=== PATIENT | male | born 1995 | race African-American/Black ===

== ENCOUNTER 2017-05-02 20:13 | Emergency (ER) | payer BC ==
[2017-05-02] MEDS ORDERED: AZITHROMYCIN 500 MG TAB PO STA (21:20)
[2017-05-02] MEDS ORDERED: cefTRIAXone 250 MG VIAL IM STA (21:20)
--- NOTE | 2017-05-02 21:23 | ED ---
Male Urogenital HPI - General Chief complaint: Urogenital Stated complaint: Male Source: patient Mode of arrival: ambulatory Limitations: no limitations - History of Present Illness Initial comments: 21-year-old -[place] male sent for evaluation of urethral burning and dysuria. He states that he had unprotected sex with his ex-girlfriend 2 weeks ago and about a week ago he started having his symptoms. He denies any dermatological changes and states that he only has burning. He denies any urethral discharge or testicular/penile tenderness. He has never had urinary tract infections or sexually transmitted illnesses in the past. He states he knows that his ex-girlfriend has been "sleeping around ." - Related Data Allergies Allergy/AdvReac Type Severity Reaction Status Date / Time No Known Allergies Allergy Verified 05/02/17 20:29 Review of Systems ROS Statement: Those systems with pertinent positive or pertinent negative responses have been documented in the HPI. ROS Other: All systems not noted in ROS Statement are negative. Constitutional: Denies: fever, chills Eyes: Denies: eye pain, eye discharge ENT: Denies: ear pain, throat pain Respiratory: Denies: cough, dyspnea Cardiovascular: Denies: chest pain, palpitations Endocrine: Denies: fatigue, polydipsia Gastrointestinal: Denies: abdominal pain, nausea, vomiting Genitourinary: Reports: dysuria, other (Urethral burning). Denies: urgency, hematuria, discharge, testicular pain, testicular mass Musculoskeletal: Denies: back pain, arthralgia, myalgia Skin: Denies: rash, lesions Neurological: Denies: headache, weakness Psychiatric: Denies: anxiety, depression Hematological/Lymphatic: Denies: easy bleeding, easy bruising Past Medical History Past Medical History: No Reported History History of Any Multi-Drug Resistant Organisms: None Reported Past Surgical History: No Surgical Hx Reported Past Psychological History: Bipolar Smoking Status: Never smoker Past Alcohol Use History: Occasional Past Drug Use History: Marijuana General Exam Limitations: no limitations General appearance: alert, in no apparent distress Head exam: Present: atraumatic, normocephalic, normal inspection Eye exam: Present: normal appearance, PERRL, EOMI. Absent: scleral icterus, conjunctival injection, periorbital swelling ENT exam: Present: normal exam, mucous membranes moist Neck exam: Present: normal inspection. Absent: tenderness, meningismus, lymphadenopathy Respiratory exam: Present: normal lung sounds bilaterally. Absent: respiratory distress, wheezes, rales, rhonchi, stridor Cardiovascular Exam: Present: regular rate, normal rhythm, normal heart sounds. Absent: systolic murmur, diastolic murmur, rubs, gallop, clicks GI/Abdominal exam: Present: soft, normal bowel sounds. Absent: distended, tenderness, guarding, rebound, rigid Rectal exam: Present: deferred exam: Present: normal inspection, circumcision. Absent: testicular tenderness, urethral discharge, scrotal swelling, vertical testicular lie External exam: Present: normal external exam. Absent: erythema, swelling, lesions Extremities exam: Present: normal inspection, full ROM, normal capillary refill. Absent: tenderness, pedal edema, joint swelling, calf tenderness Back exam: Present: normal inspection Neurological exam: Present: alert, oriented X3, CN II-XII intact Psychiatric exam: Present: normal affect, normal mood Skin exam: Present: warm, dry, intact, normal color. Absent: rash Course Vital Signs 05/02/17 20:27 Temperature 98.3 F Pulse Rate 97 Respiratory 20 Rate Blood Pressure 143/77 O2 Sat by Pulse 97 Oximetry Medical Decision Making - Medical Decision Making 21-year-old Afro-[place] male presenting for evaluation of urethral burning and dysuria for the last week. Sexual intercourse unprotected with a new partner 2 weeks ago. He denies any urethral discharge. On physical examination there is no discharge at the urethral meatus and not expressed during exam. There are no dermatologic changes and exam is negative for any lesions to the penis or scrotum. They're further no enlarged lymph nodes. Urethral swabs obtained and sent for culture. Patient treated with IM Rocephin and by mouth azithromycin. He was given instructions on follow-up with his primary care physician and informed that he would be contacted with positive results but if cultures were negative he would not be contacted. All questions were answered and there were numerous. The patient acknowledged an understanding of all information provided and agreed with this plan of care. Disposition Clinical Impression: Urethritis, unspecified Disposition: HOME SELF-CARE Condition: Stable Instructions: Sexually Transmitted Diseases (ED) Referrals: None,Stated [Primary Care Provider] - 1-2 days Time of Disposition: 21:23
[2017-05-02 21:52] VITALS: BP 129/71; PULSE 79; RESP 18; TEMP 97.8
== END 2017-05-02 21:51 | disposition home or self-care (01) ==
LOC: EC 20:13
DX: N34.2 Other urethritis (principal)
CPT/HCPCS: 99283; 96372; 87591; 87491; J0696

== ENCOUNTER 2020-07-09 13:33 | Emergency (ER) | payer BC ==
[2020-07-09 13:39] VITALS: BP 129/87; PULSE 100; RESP 20; TEMP 98.9
[2020-07-09] MEDS ORDERED: AZITHROMYCIN 500 MG TAB PO STA (13:58)
[2020-07-09] MEDS ORDERED: cefTRIAXone 250 MG VIAL IM STA (13:58)
--- NOTE | 2020-07-09 13:59 | ED ---
Male Urogenital HPI - General Chief complaint: Urogenital Stated complaint: Male Time Seen by Provider: 07/09/20 13:52 Source: patient, RN notes reviewed, old records reviewed Mode of arrival: ambulatory Limitations: no limitations - History of Present Illness Initial comments: This is a 25-year-old male DF for evaluation presents today for evaluation of STD exposure and believes he has SC history of one SVT prior to his life does have dysuria and drainage well-appearing as well as having discharge in his underwear no pain no fevers no rash MD Complaint: penile discharge, genital injury -: days(s) Location: penis Severity: mild Consistency: constant Worsens with: urination Reports: discharge - Related Data Home Medications Medication Instructions Recorded Confirmed No Known Home Medications 05/02/17 05/02/17 Allergies Allergy/AdvReac Type Severity Reaction Status Date / Time No Known Allergies Allergy Verified 07/09/20 13:39 Review of Systems ROS Statement: Those systems with pertinent positive or pertinent negative responses have been documented in the HPI. ROS Other: All systems not noted in ROS Statement are negative. Past Medical History Past Medical History: No Reported History History of Any Multi-Drug Resistant Organisms: None Reported Past Surgical History: No Surgical Hx Reported Past Psychological History: Bipolar Smoking Status: Never smoker Past Alcohol Use History: Occasional Past Drug Use History: Marijuana General Exam Limitations: no limitations General appearance: alert, in no apparent distress Head exam: Present: atraumatic, normocephalic, normal inspection Eye exam: Present: normal appearance, PERRL, EOMI. Absent: scleral icterus, conjunctival injection, periorbital swelling ENT exam: Present: normal exam, mucous membranes moist Neck exam: Present: normal inspection. Absent: tenderness, meningismus, lymphadenopathy Respiratory exam: Present: normal lung sounds bilaterally. Absent: respiratory distress, wheezes, rales, rhonchi, stridor Cardiovascular Exam: Present: regular rate, normal rhythm, normal heart sounds. Absent: systolic murmur, diastolic murmur, rubs, gallop, clicks GI/Abdominal exam: Present: soft, normal bowel sounds. Absent: distended, tenderness, guarding, rebound, rigid Extremities exam: Present: normal inspection, full ROM, normal capillary refill. Absent: tenderness, pedal edema, joint swelling, calf tenderness Back exam: Present: normal inspection Neurological exam: Present: alert, oriented X3, CN II-XII intact Psychiatric exam: Present: normal affect, normal mood Skin exam: Present: warm, dry, intact, normal color. Absent: rash Course Vital Signs 07/09/20 13:35 Temperature 98.9 F Pulse Rate 100 Respiratory 20 Rate Blood Pressure 129/87 O2 Sat by Pulse 99 Oximetry - Reevaluation(s) Reevaluation #1: Medical record is reviewed Patient symptoms are significantly improved Patient informed and updated regarding results, questions answered Patient feels good for discharge home Medical Decision Making - Medical Decision Making 25 male to the ER for evaluation patient presents today for evaluation regards to STD, patient will be treated for STD here in the ER and can be discharged home - Lab Data Lab Results 07/09/20 Range/Units 13:50 Urine Color Yellow Urine Appearance Clear (Clear) Urine pH 5.5 (5.0-8.0) Ur Specific [place] 1.029 (1.001-1.035) Urine Protein 1+ H (Negative) Urine Glucose (UA) Negative (Negative) Urine Ketones Negative (Negative) Urine Blood Moderate H (Negative) Urine Nitrite Negative (Negative) Urine Bilirubin Negative (Negative) Urine Urobilinogen <2.0 (<2.0) mg/dL Ur Leukocyte Esterase Moderate H (Negative) Urine RBC 4 (0-5) /hpf Urine WBC 17 H (0-5) /hpf Ur Squamous Epith Cells <1 (0-4) /hpf Urine Mucus Occasional H (None) /hpf Disposition Clinical Impression: STD exposure Disposition: HOME SELF-CARE Condition: Good Instructions (If sedation given, give patient instructions): Nonspecific Urethritis in Men (ED) Is patient prescribed a controlled substance at d/c from ED?: No Referrals: Berta Celaya MD [Primary Care Provider] - 1-2 days
[2020-07-09 14:17] LABS: Appearance,Urine Clear (Clear); Bilirubin,Urine Negative (Negative); Blood,Urine Moderate (Negative); Color,Urine Yellow; Glucose,Urine (UA) Negative (Negative); Ketones,Urine Negative (Negative); Leukocyte Esterase,Urine Moderate (Negative); Mucus,Urine Occasional /hpf; Nitrite,Urine Negative (Negative); PH, Urine 5.5 (5.0-8.0); Protein,Urine 1+ (Negative); RBC,Urine 4 /hpf (0-5); Specific Gravity,Urine 1.029 (1.001-1.035); Squamous Epithelial Cell,Urine <1 /hpf (0-4); Urobilinogen,Urine <2.0 mg/dL (<2.0); WBC,Urine 17 /hpf (0-5)
[2020-07-11 08:45] LABS: C. trachomatis,PCR Positive (Neg,Equiv); Chlamydia trachomatis Source Urine; N. gonorrhoeae,PCR Negative (Neg,Equiv); Neisseria Source Urine
== END 2020-07-09 14:17 | disposition home or self-care (01) ==
LOC: EC 13:33
DX: Z20.2 Contact with and (suspected) exposure to infections with a predominantly sexual mode of transmission (principal)
CPT/HCPCS: 81001; 87086; 87491; 87591; 99284